=== PATIENT | female | born 1980 | race Caucasian/White ===

== ENCOUNTER → 2023-08-04 15:52 | Outpatient (REF) | payer OTHER, SELFPAY | LOC: WDC 15:52 | PROVIDERS: ATTENDING PHYSICIAN Nurse Practitioner Family; FAMILY PHYSICIAN Physician Assistant Medical | DX: Z12.31 Encounter for screening mammogram for malignant neoplasm of breast (principal) | CPT/HCPCS: 77063; 77067 ==

== ENCOUNTER 2024-06-03 23:11 | Emergency (ER) | payer OTHER, SELFPAY ==
[2024-06-03 23:25] VITALS: BP 135/86
[2024-06-03 23:56] LABS: HCG, Serum Qualitative Screen Negative
[2024-06-03 23:56] LABS: Urine Albumin Negative (Neg - Trace); Urine Bilirubin Negative (Negative); Urine Character Clear (Clear); Urine Color Yellow; Urine Glucose Negative (Negative); Urine Ketone Negative (Negative); Urine Leukocyte Negative (Negative); Urine Nitrite Negative (Negative); Urine Occult Blood 1+ (Negative); Urine Specific Gravity 1.015 (<1.030); Urine Urobilinogen Negative (Neg - 1+); Urine pH 6.5 (5.0-9.0)
[2024-06-03 23:57] LABS: % Basophils 0.7 % (0-2); % Eosinophils 1.3 % (0-6); % Immature Granulocytes 0.4 % (0-0.5); % Lymphocytes 24.7 % (20.5-51.1); % Monocytes 4.5 % (1.7-9.3); % Neutrophils 68.4 % (42.2-75.2); Absolute Basophils 0.1 10^3/uL (0-0.2); Absolute Eosinophils 0.1 10^3/uL (0-0.7); Absolute Lymphocytes 2.6 10^3/uL (1.2-3.4); Absolute Monocytes 0.5 10^3/uL (0.1-0.6); Absolute Neutrophils 7.1 10^3/uL (1.4-6.5); Hematocrit 39.1 % (37.0-47.0); Hemoglobin 12.8 g/dL (12.0-16.0); Mean Corp Hgb Conc. 32.7 g/dL (33.0-37.0); Mean Corpuscular Hgb 29.1 pg (27.0-31.0); Mean Corpuscular Volume 88.9 fL (81.0-99.0); Mean Platelet Volume 9.2 fL (7.4-10.4); Nucleated Red Blood Cells % 0 %; Platelet Count 320 10^3/uL (130-400); Red Cell Dist. Width 12.5 % (11.5-14.5); White Blood Cell Count 10.4 10^3/uL (4.8-10.8)
[2024-06-04 00:02] LABS: ALT (SGPT) 32 U/L (0-35); AST (SGOT) 26 U/L (14-36); Albumin 5.1 g/dl (3.5-5.0); Alkaline Phosphatase 83 U/L (38-126); Blood Urea Nitrogen 18 mg/dl (7-17); Calcium 10.1 mg/dl (8.4-10.2); Carbon Dioxide 26 mmol/L (22-30); Chloride 100 mmol/L (98-107); Glucose 104 mg/dl (70-99); Potassium 4.1 mmol/L (3.5-5.1); Sodium 139 mmol/L (135-145); Total Bilirubin 0.6 mg/dl (0.2-1.3); Total Protein 7.8 g/dl (6.3-8.2); eGFR > 60.00
--- NOTE | 2024-06-04 00:11 | ED.GENMED ---
History of Present Illness
General
Chief Complaint: Chest Pain
Source: patient
Exam Limitations: none
Time Seen by Provider: 06/04/24 00:11
History of Present Illness
History of Present Illness:
44-year-old female 30 minutes of nonexertional chest pain around lunchtime. Points to the right upper chest. Nonpleuritic. No radiation no shortness of breath no nausea or diaphoresis. No syncope. Symptoms recurred again around 11 PM tonight.
Lasted a few hours and essentially resolved at this time. Again no history of same.
Past History
Past History
ED Past Surgical History:
Review of Systems
Review of Systems
All Other Systems: Not applicable
Constitutional: Denies fever or chills
Respiratory: Denies cough or trouble breathing
ABD/GI: Reports no symptoms
Phy Exam
Physical Exam
Physical Exam:
GENERAL: Alert and oriented in no apparent distress
EYE: Orbits normal.
NECK: Supple
ENT: Pharynx without erythema
CARDIAC: Regular rate and rhythm without any obvious murmurs.
LUNGS: Clear breath sounds,normal
ABDOMEN: Soft, without focal tenderness or distention
NEUROLOGICAL: Alert and oriented , grossly non-focal
SKIN: Warm and dry, no rash or lesion, no discoloration, skin intact.
MUSCULOSKELETAL: No edema,no deformity.Good color
PSYCH: Normal and appropriate interaction.
Scores
Heart Score for Chest Pain Patients
STEMI patient?: No
History: Slightly or Non-Suspicious
ECG: Normal
Age: </= 45 years
Risk Factors: No Risk Factors
Troponin: </= Normal Limit
Heart Score for Chest Pain Patients: 0
Heart Score Risk: 2.5% MACE over next 6 weeks
Course
Orders/Labs/Results
Orders:
Orders
06/03/24 23:13
Electrocardiogram (*1) Urgent
Reason for Study: Chest Pain
06/03/24 23:14
EKG- Treatment ONCE
06/03/24 23:30
Test Result ONCE
06/03/24 23:38
Complete Blood Count/With Diff Urgent
Comprehensive Metabolic Panel Urgent
HCG, Serum Qualitative Screen Urgent
Troponin I Urgent
06/03/24 23:50
Urinalysis Urgent
Date Specimen was Collected: 06/03/24
Time Specimen was Collected: 23:47
Urine Microscopic Urgent
Date Specimen was Collected: 06/03/24
Time Specimen was Collected: 23:47
06/04/24 00:26
Chest [CR Chest - 2 Views ] Urgent
Comment:
Reason For Exam: chest pain
06/04/24 00:36
EKG- Treatment ONCE
06/04/24 00:38
D-Dimer Urgent
06/04/24 02:21
Troponin I Urgent
06/04/24 02:30
Electrocardiogram (*1) Stat
Reason for Study: Other
Other Reason for Exam: chest pain
Abnormal Lab Results
06/03/24 06/03/24
23:38 23:50
MCHC 32.7 L g/dL
(33.0-37.0)
Absolute Neuts (auto) 7.1 H 10^3/uL
(1.4-6.5)
BUN 18 H mg/dl
(7-17)
Glucose 104 H mg/dl
(70-99)
Albumin 5.1 H g/dl
(3.5-5.0)
Urine Occult Blood 1+ A
(Negative)
Urine RBC 3-6 A /HPF
(0-2)
Urine Bacteria Few A
(Negative)
06/03/24 23:38
06/03/24 23:38
Vital Signs
Initial and Last Documented VS:
Initial Vital Signs
Temp Pulse Resp BP Pulse Ox
98.5 F 87 16 135/86 100
06/03/24 23:25 06/03/24 23:25 06/03/24 23:25 06/03/24 23:25 06/03/24 23:25
Last Documented Vital Signs
Temp Pulse Resp BP Pulse Ox
98.5 F 94 18 111/82 95
06/03/24 23:25 06/04/24 02:15 06/04/24 02:15 06/04/24 02:00 06/04/24 03:00
*Radiology
Radiology exam reviewed: preliminary read by ED provider (neg)
*Pulse Oximetry
Patient hypoxic: no
*EKG
Interpreted by ED Provider?: Yes
Interpretation: normal
Comparison EKG: no comparison EKG present
Heart Rate: 86
Rate: normal
Rhythm: sinus
[place]: normal axis
Interval: normal interval
QRS Pattern: normal QRS
Ischemia: no ischemia
*Critical Care Note
Total Time (30-74mins, 75-104mins- exclusive of procedures): Not Applicable
Update Note
Update Note:
Repeat EKG normal sinus rhythm at 95. No acute changes. Workup unremarkable. Awaiting repeat troponin. If negative patient can be discharged to follow-up. No cardiac risk factors. Atypical not exertional symptoms with a negative workup
ED Attending Note
-
Portions of this chart may have been created with voice recognition software.� Occasional wrong word or��sound alike� substitutions may have occurred due to the inherent limitations of voice recognition software.
Discharge Plan
Departure
Patient Disposition: Home (Routine Discharge)
Date of Disposition: 06/04/24
Time of Disposition: 02:37
Patient with high blood pressure during this ER visit?: No
Discharge Problem:
Anterior chest pain
Instructions: Chest Pain PCP Follow Up
Referrals:
Ling Najear PA-C [Family Provider] - Follow up in 2-3 days
Interventions
Interventions:
*Risk Screen - Suicide Last Done: 06/03/24 23:25
*General Assessment Last Done: 06/04/24 00:15
*Neglect/Abuse Screening Last Done: 06/04/24 00:15
*ED- Fall Risk Assessment Last Done: 06/04/24 00:15
*ED COVID-19 Vaccine History Last Done: 06/04/24 00:15
*Nursing Disposition Last Done: 06/04/24 04:15
ED- Cardiac Assessment Last Done: 06/04/24 00:15
Discharge Date and Time
Discharge Date/Time: 06/04/24 04:15
Print Language: SWEDISH
[2024-06-04 00:13] VITALS: BP 111/78
[2024-06-04 00:15] VITALS: BMI 32.6
[2024-06-04 00:15] LABS: Troponin I < 0.012 ng/ml
--- NOTE | 2024-06-04 00:26 | EDRN ---
Updated patient on labs and Dr. Farfan is in at bedside seeing patient
[2024-06-04 01:00] VITALS: BP 123/73
[2024-06-04 01:02] LABS: D-Dimer < 0.27 ug/mlFEU (0.00-0.50)
[2024-06-04 01:45] LABS: Urine Bacteria Few (Negative)
[2024-06-04 02:00] VITALS: BP 111/82
--- NOTE | 2024-06-04 02:31 | EDRN ---
Patient ambulated to the bathroom and back in bed resting comfortably
[2024-06-04 03:38] LABS: Troponin I < 0.012 ng/ml
== END 2024-06-04 04:15 | disposition home or self-care (01) ==
LOC: EMR 23:11
PROVIDERS: Emergency Medicine; EMERGENCY PHYSICIAN Emergency Medicine; FAMILY PHYSICIAN Physician Assistant Medical
DX: R07.89 Other chest pain (principal)
CPT/HCPCS: 99285; 71046; 80053; 81003; 81015; 84484; 84703; 85025; 85379; 93005

== ENCOUNTER → 2024-08-29 13:41 | Outpatient (REF) | payer OTHER, SELFPAY | LOC: WDC 13:41 | PROVIDERS: ATTENDING PHYSICIAN Obstetrics & Gynecology; FAMILY PHYSICIAN Physician Assistant Medical | DX: Z12.31 Encounter for screening mammogram for malignant neoplasm of breast (principal) | CPT/HCPCS: 77063; 77067 ==